=== PATIENT | female | born 1935 ===

== ENCOUNTER 2023-01-18 18:31 | Inpatient (IN) | payer MEDICARE ==
[~2023-01-18] VITALS: Ht 165.1 cm; Wt 64.8 kg
[2023-01-18] MEDS ORDERED: ELIQUIS2.5 MG PO (19:40)
--- NOTE | 2023-01-19 05:20 | NUR ---
PT IS A&02-3 SLIGHTLY CONFUSED OVERNIGHT, CAME DIRECT ADMISSION FROM [facility], 2L NC NO HOME O2, NO COMPLAINTS OF PAIN OR DISCOMFORT THIS SHIFT, CONTINUE POC
[2023-01-19 05:22] LABS: Digoxin (Lanoxin) 1.01 ug/mL (0.80-2.00)
--- NOTE | 2023-01-19 07:26 | NUR ---
RECEIVED A CALL FROM [facility] DEPT NAME BRANDIE. PER BRANDIE PATIENT IS SCHEDULE TO HAVE THORACENTESIS SOMETIMES TODAY. IN ORDER TO PROCEED THE PROCEDURE PER BRANDIE THE DOCTOR WANTS THE LAB VALUES OF PT/INR, PTT, AND PLATELETS. THIS RN CALLED DR. BEJARANO TO NOTIFY THE REQUEST. RECEIVED ORDER FROM DR. BEJARANO TO ORDER THE FOLLOWING LAB OF PT/INR, PTT, PLATELETS AND CBC.
[2023-01-19 08:15] LABS: BASOPHILS ABSOLUTE AUTO 0.01 K/mm3 (0.00-0.23); BASOPHILS PERCENT AUTO 0 % (0-2); EOSINOPHILS ABSOLUTE AUTO 0.06 K/mm3 (0.00-0.68); EOSINOPHILS PERCENT AUTO 1 % (0-6); Hematocrit 36.9 % (33.0-51.0); Hemoglobin 11.4 g/dL (11.5-16.0); IMMATURE GRAN ABSOLUTE AUTO 0.02 K/mm3 (0.00-0.10); IMMATURE GRAN PERCENT AUTO 0 % (0-1); LYMPHOCYTES ABSOLUTE AUTO 0.66 K/mm3 (0.84-5.20); LYMPHOCYTES PERCENT AUTO 9 % (21-46); MONOCYTES ABSOLUTE AUTO 0.54 K/mm3 (0.16-1.47); MONOCYTES PERCENT AUTO 7 % (4-13); Mean Corpuscular HGB 27.4 pg (26.0-34.0); Mean Corpuscular HGB Conc 30.9 g/dL (31.5-36.5); Mean Corpuscular Volume 89 fL (80-100); Mean Platelet Volume 9.9 fL (9.1-12.4); NEUTROPHILS ABSOLUTE AUTO 6.14 K/mm3 (1.96-9.15); NEUTROPHILS PERCENT AUTO 83 % (41-73); Platelet Count 258 K/mm3 (150-400); RDW Coefficient Variation 15.6 % (11.7-14.2); RDW Standard Deviation 50.5 fL (35.1-46.3); Red Blood Cell Count 4.16 M/mm3 (3.80-5.20); White Blood Cell Count 7.43 K/mm3 (4.00-11.30)
[2023-01-19 08:32] LABS: International Normalized Ratio 1.11; Prothrombin Time Results 11.6 Sec (9.7-11.5)
[2023-01-19 08:52] LABS: Albumin, Blood 3.6 g/dL (3.4-5.0); Anion Gap 2 mmol/L (6-16); Blood Urea Nitrogen 16 mg/dL (8-24); Bun/Creatinine Ratio 19.4 (12.0-20.0); CO2, Blood 32 mmol/L (21-32); Calcium, Blood 10.6 mg/dL (8.5-10.1); Chloride, Blood 107 mmol/L (98-108); Creatinine, Blood 0.82 mg/dL (0.40-1.00); Glomerular Filtration Rate 70 (60-); Glucose, Blood 116 mg/dL (70-99); Phosphorus, Blood 3.8 mg/dL (2.5-4.9); Potassium, Blood 3.7 mmol/L (3.5-5.5); Sodium, Blood 141 mmol/L (136-145)
[2023-01-19 08:59] LABS: Total Protein, Blood 7.9 g/dL (6.4-8.2)
--- NOTE | 2023-01-19 10:20 | NUR ---
PATIENT LEFT THE ROOM AT AROUND 1010 TO IMAGING. PATIENT TRANSPORTED VIA WHEELCHAIR BY [employer]DING PHOTOGRAPHER.
[2023-01-19] MEDS ORDERED: DIGOX125 MC1 PO (11:02)
[2023-01-19] MEDS ORDERED: KLOR-CON 1010 ME9 PO (11:04)
[2023-01-19] MEDS ORDERED: DILTIAZEM 24HR240 M5 PO (11:05)
[2023-01-19 11:18] LABS: Body Fluid WBC Count 370 /mm3 (0-999)
[2023-01-19 11:58] LABS: Glucose, Body Fluid 130 mg/dL; Lactate Dehydrogenase, Body Fl 48 U/L; Protein, Body Fluid 3.6 g/dL
[2023-01-19 12:01] LABS: Appearance, Body Fluid Clear (Clear); Color, Body Fluid Yellow (None-Yellow); RBC Count, Body Fluid 107 /mm3 (0-0)
[2023-01-19 12:21] LABS: Total Cell Count, Body Fluid 100
--- NOTE | 2023-01-19 16:33 | NUR ---
SHIFT SUMMARY: PATIENT A&OX3. FORGETFUL, CALM, PLEASANT AND COOPERATIVE c CARE. PATIENT DENIES CP/PRESSURE. ON TELE, AFIB HR RANGES 77-120'S BPM c OCCASIONAL PVC, PER PUBLISHING SYSTEMS ANALYST, JM VALENTINE. AT AROUND 0834 PATIENT BP 208/113, HR OF [address] BEJARANO TO REPORT BP AND HR. RECEIVED ORDER FROM DR. BEJARANO TO GIVE HYDRALAZINE 10-20 MG IV PRN c SYSTOLIC BP GREATER THAN 160'S. MEDICATED PATIENT c HYDRALAZINE 10 MG IV. VITAL SIGNS WAS RECHECKED ABOUT 30 MINS LATER, BP 154/110, HR OF 110 BPM. PATIENT DENIES CP/PRESSURE, N/V, SOB. PATIENT HAD THORACENTECIS DONE, 1.5 LITERS OF FLUIDS WAS TAKEN OUT. ECHO WAS DONE THIS PM, AWAITING FOR RESULT. PATIENT AMBULATES TO [facility] [place] c 1 ASSIST. IV TO R FOREARM SALINE LOCKED. BED ALARM ON FOR SAFETY. CALL LIGHT IN REACH.
--- NOTE | 2023-01-20 04:20 | NUR ---
SHIFT SUMMARY; PT WITH ONE TELE EVENT LAST NIGHT, PT GABINO'D DOWN TO 30'S FOR A COUPLE SECONDS BEFORE TACHYING UP TO THE 150'S FOR A COUPLE SECONDS AND THEN SETTLED OUT IN THE 90-100'S. TELE IS IN PLACE, THE PT IS A-FIB 90-100'S. THE PT IS AXO X3 WITH SOME MILD CONFUSION. THE PT IS A 1 ASSIST TO THE BSC, THE PT USES THE CALL LIGHT APPROPRIATELY. THE PT DENIES ANY SOB, PAIN, CHEST PAIN/PRERSSURE OR N/V THIS SHIFT. CURRENTLY THE PT IS SLEEPING IN BED WITH THE BED IN THE LOWEST POSITION AND THE CALL LIGHT AT BEDSIDE.
[2023-01-20 06:13] LABS: Albumin, Blood 3.3 g/dL (3.4-5.0); Anion Gap 3 mmol/L (6-16); Blood Urea Nitrogen 26 mg/dL (8-24); Bun/Creatinine Ratio 32.6 (12.0-20.0); CO2, Blood 32 mmol/L (21-32); Calcium, Blood 10.3 mg/dL (8.5-10.1); Chloride, Blood 104 mmol/L (98-108); Glomerular Filtration Rate 72 (60-); Glucose, Blood 117 mg/dL (70-99); Phosphorus, Blood 2.6 mg/dL (2.5-4.9); Potassium, Blood 3.2 mmol/L (3.5-5.5); Sodium, Blood 139 mmol/L (136-145)
--- NOTE | 2023-01-20 09:45 | NUR ---
RECEIVED REPORT FROM NOC RN, DORENE PATIENT HAD EPISODE OF BRADYCARDIA HR OF 39 IT LAST ABOUT [address] GOLD WAS NOTIFIED DURING PATIENT ROUNDING THIS AM. RECEIVED ORDER FROM DR. GOLD TO HOLD SCHEDULED DELTIAZEM. DELTIAZEM WAS NOT GIVEN THIS AM PER ORDER. PATIENT HR c ACTIVITIES 130'S-150'S AND DROP TO HIGH 70'S WHEN RESTING IN BED. AT AROUND 0938, THIS RN WAS NOTIFIED BY DIRECTOR [facility] PATIENT HAD EPISODE OF GABINO CARDIA HR OF 34 BPM AND LAST ABOUT 3 BEATS AND BACK TO HIGH 70'S BPM. DR. GOLD WAS NOTIFIED c THIS EVENT. PER DR. GOLD CARDIOLOGY CONSULT IS ORDERED AND NEEDED TO GARLANDY WATER TECHNICIAN.
--- NOTE | 2023-01-20 16:58 | NUR ---
SHIFT SUMMARY: PATIENT A&OX3. FORGETFULL AND DOES NOT USED CALL LIGHT APPROPRIATELY. ANXIOUS AT TIMES. PLEASANT AND COOPERATIVE c CARE. PATIENT DENIES CP/PRESSURE, N/V, SOB. ON TELE, AFIB HR RANGES 77-150'S BPM c ACTIVITIES. PATIENT HAD ONE EPISODE OF GABINO CARDIA HR WAS 34 BPM AND LAST 3 BEATS PER HEALTH PROMOTION SPECIALIST. CARDILOGY WAS CONSULTED c PATIENT CONDITION. PATIENT ON RA c SPO2 RANGES 91-96% THIS SHIFT. LUNGS CLEAR/DIM T/O TO AUSCULTATION. PATIENT HAS PLUS 2 EDEMA TO BLE'S. RECEIVED SCHEDULED MEDS PER EMAR. PATIENT AMBULATES TO [facility] [place] c SBA. TOLERATED ORAL INTAKE WITHOUT DIFFICULTIES. BED ALARM ON FOR SAFETY. CALL LIGHT IN REACH.
--- NOTE | 2023-01-21 05:07 | NUR ---
SUMMARY: PATIENT AOX3-4, FORGETFUL AT TIMES. OCCASIONALLY CALL OUT FOR NURSES INSTEAD OF USING CALL LIGHT BUT IS RESPONSIVE TO EDUCATION. PATIENT BP ELEVATED OVERNIGHT GAVE PRN IV HYDRALAZINE TWICE. MORNIGN EKG COMPLETED AND PLACED ON CHART THIS AM. TELE IN PLACE PATIENT HR DROPPED LOW INTO THE 30S FOR A FEW BEATS LAST NIGHT BUT WAS RUNNING AFIB IN 70S OTHERWISE. PATIENT RETAINING URINE THIS AM, NOTIFIED , PERFORMED STRAIGHT CATH 1X AND REMOVED 450 Ml OF URINE. PUT ORDER IN FOR Q6HR BLADDER SCAN. WILL PASS MESSAGE ONTO NEXT SHIFT. PATIENT SBA TO RESTROOM. BED ALARM ON. CALL LIGHT IN REACH.
[2023-01-21 06:18] LABS: Magnesium, Blood 2.2 mg/dL (1.6-2.4); Thyroid Stimulating Hormone 0.721 uIU/mL (0.360-4.800)
--- NOTE | 2023-01-21 18:41 | NUR ---
SHIFT SUMMARY: NO NEW ACUTE CHANGES IN PATIENT CONDITION THIS SHIFT. PATIENT DENIES CP/PRESSURE, N/V, SOB. ON TELE, AFIB HR AT 77 BPM c PVC. PATIENT WAS BLADDER SCAN AT AROUND 1110 PRE-RESIDUAL VOID WAS 540 MLS. PATIENT WAS ABLE TO VOID 200 MLS. POST-RESIDUAL VOID APPEAR ON BLADDER SCANNER WAS 104 MLS. PATIENT HAS BEEN VOIDING WITHOUT DIFFICULTIES USING BSC. PATIENT REFUSED TO WORK c PT MOBILITY THIS PM. VITAL SIGNS REVIEWED. IV TO R FOREARM SALINE LOCKED. ALFA NAME ALMA PHONE #[phone] CALLED UPDATE GIVEN TO IVETTEBreen PATIENT PERMISSION. PER ALFA HER MOM YOEL OR "FER" WILL BE AVAILABLE TO PICK PATIENT UP WHEN DISCHARGE INPLACE. FER'S NUMBER [phone]. BED ALARM ON FOR SAFETY. CALL LIGHT IN REACH.
[2023-01-22 05:16] LABS: Anion Gap 3 mmol/L (6-16); Blood Urea Nitrogen 29 mg/dL (8-24); Bun/Creatinine Ratio 36.3 (12.0-20.0); CO2, Blood 31 mmol/L (21-32); Calcium, Blood 10.2 mg/dL (8.5-10.1); Chloride, Blood 106 mmol/L (98-108); Glomerular Filtration Rate 72 (60-); Glucose, Blood 104 mg/dL (70-99); Phosphorus, Blood 2.8 mg/dL (2.5-4.9); Potassium, Blood 3.2 mmol/L (3.5-5.5); Sodium, Blood 140 mmol/L (136-145)
--- NOTE | 2023-01-22 06:39 | NUR ---
SUMMARY: PT A/OX3 BUT FORGETFULL AND IMPULSIVE W/BED ALARM ON FOR FALL RISK. SHE'S UP TO BSC W/SBA FOR FREQ VOIDS W/URGENCY, NO ST.CATH REQUIRED. SHE REMAINS ON TELEMETRY IN AFIB AT 70'S BPM BUT GABINO'D DOWN TO A LOW OF 29 BPM AND 30'S AT TIMES FOR A FEW BEATS AT A TIME. SHE WAS ASYMPTOMATIC OF CARDIAC DISTRESS AND UPON AWAKING WAS BACK SUSTAINING 70'S AGAIN. EDEMA PERSISTS TO BLE'S W/LEGS ELEVATED IN BED. BP STABLE AT HS BUT SBP ELEVATED THIS AM THOUGH PT HAD JUST AMBULATED, PLAN TO RECHECK. K-3.2 THIS AM AND 40MEQ KCL RX'D. NO ACUTE CHANGES, VSS/AFEBRILE. WCTM AND REPORT TO DAY RN.
[2023-01-22] MEDS ORDERED: AMLO5 PO (11:48)
[2023-01-22] MEDS ORDERED: METO50ER PO (11:49)
[2023-01-22] MEDS ORDERED: FURO40 PO (11:50)
--- NOTE | 2023-01-22 16:11 | NUR ---
DISCHARGE SUMMARY PATIENT IS ALERT AND ORIENTED. PATIENT HAS HAD NO ACUTE EVENTS THIS SHIFT. VITAL SIGNS REVIEWED. PATIENT HAS BEEN ON RA AND IS A STANDBY ASSIST. PATIENT IS BEING DISCHARGED HOME. PATIENT HAS NOT COMPLAINED OF PAIN, NAUSEA, SOB OR VOMITTING THIS SHIFT. PATIENTS DAUGHTER PICKED UP PATIENT. DANIEL KATHLEEN WHEELING PATIENT TO PATIENTS FAMILIES CAR.
== END 2023-01-22 15:55 | disposition home health service (06) | DRG 291 ==
LOC: MEDS 18:31
PROVIDERS: Family Medicine; Internal Medicine Cardiovascular Disease; Student in an Organized Health Care Education/Training Program; ADMIT Nurse Practitioner Acute Care
PROC: 0W993ZZ Drainage of Right Pleural Cavity, Percutaneous Approach (ICD-10-PCS; principal; 2023-01-19)
DX: I11.0 Hypertensive heart disease with heart failure (principal); I50.33 Acute on chronic diastolic (congestive) heart failure; J96.01 Acute respiratory failure with hypoxia; I48.20 Chronic atrial fibrillation, unspecified; J91.8 Pleural effusion in other conditions classified elsewhere; N39.0 Urinary tract infection, site not specified; Z66 Do not resuscitate; I27.20 Pulmonary hypertension, unspecified; E87.6 Hypokalemia; F10.10 Alcohol abuse, uncomplicated; I07.1 Rheumatic tricuspid insufficiency; Z79.899 Other long term (current) drug therapy; Z79.2 Long term (current) use of antibiotics; Z79.01 Long term (current) use of anticoagulants; Z87.891 Personal history of nicotine dependence
CPT/HCPCS: 32555; 36415; 71045; 80069; 80162; 82042; 82945; 83615; 83735; 84155; 84157; 84443; 85025; 85610; 85730; 87070; 87205; 88108; 88305; 89051; 93005; 93010; 93306; 94761; 97166; 97535; A9270; J0360; J0696; J1940; J3480; J7050